=== PATIENT | female | born 1985 | race Caucasian/White ===

== ENCOUNTER 2017-04-06 18:32 | Emergency (ER) | payer SELFPAY ==
[~2017-04-06] VITALS: Ht 175.3 cm; Wt 120.0 kg
[~2017-04-06 18:32] MED LIST: SPRI28TA PO
[2017-04-06 18:45] VITALS: BP 125/77; PULSE 82; RESP 15; TEMP 98.2; O2SAT 100
--- NOTE | 2017-04-06 19:46 | PD ---
HPI Chief Complaint: Abdominal Pain Time Seen by Provider: 18:55 Travel History International Travel<30 days: No Contact w/Intl Traveler<30days: No Traveled to known affect area: No History of Present Illness HPI Patient is a 32-year-old female presenting to the emergency room evaluation of abdominal cramping. She was initially seen and evaluated in [place], [facility] to rule out ectopic . She states she took a test today and it was positive. Her last menstrual cycle was on March 20. She states that she is an intermittent cramping with her menstrual cycles however this is gone on for the last month. She reports occasional dysuria. She also states that her white blood cell count has been elevated in the past and she's been evaluated by hematology. Her past medical history significant for PCOS. [facility] Past Medical History Reproductive: Yes (pcos) ?: LMP: 03/20/17 : 1 Past Surgical History Surgical History: No Previous Surgery Social History Alcohol Use: Yes Tobacco Use: No Substance Use: No Allergies-Medications (Allergen,Severity, Reaction): Coded Allergies: No Known Allergies (Unverified , 04/06/17) Reported Meds & Prescriptions Reported Meds & Active Scripts Active Reported Sprintec 28 (Norgestimate-Ethinyl Estradiol) 0.25-35 mg-Mcg Tab 1 Tab PO DAILY Review of Systems Except as stated in HPI: all other systems reviewed are Neg Genitourinary: Positive: Dysuria (cramping), Pelvic Pain, No: Discharge, Vaginal Bleeding Physical Exam Narrative GENERAL: Well-developed, well-nourished, alert female. Resting comfortably in no acute distress. SKIN: Warm and dry. HEAD: Atraumatic. Normocephalic. EYES: Pupils equal and round. No scleral icterus. No injection or drainage. ENT: No nasal bleeding or discharge. Mucous membranes pink and moist. NECK: Trachea midline. No JVD. CARDIOVASCULAR: Regular rate and rhythm. RESPIRATORY: No accessory muscle use. Clear to auscultation. Breath sounds equal bilaterally. GASTROINTESTINAL: Abdomen soft, non-tender, nondistended. Hepatic and splenic margins not palpable. GENITOURINARY: Normal external genitalia without lesions or erythema. Vaginal vault without blood, white drainage noted. No foul odor noted. Cervical os was closed without drainage. No cervical motion tenderness. Uterus nontender and nonenlarged. Bilateral adnexa nontender without masses. MUSCULOSKELETAL: Extremities without clubbing, cyanosis, or edema. No obvious deformities. NEUROLOGICAL: Awake and alert. No obvious cranial nerve deficits. Motor grossly within normal limits. Five out of 5 muscle strength in the arms and legs. Normal speech. PSYCHIATRIC: Appropriate mood and affect; insight and judgment normal. Data Data Last Documented VS Vital Signs Date Time Temp Pulse Resp B/P (MAP) Pulse Ox O2 Delivery O2 Flow Rate FiO2 04/06/17 21:53 72 20 130/80 (97) 97 Room Air 04/06/17 18:45 98.2 Orders Orders Us Pelvis (Ques Pr/Ect)W Trans (04/06/17 ) Wet Prep Profile (04/06/17 18:54) Gc And Chlamydia Pcr (04/06/17 18:54) Labs Laboratory Tests Test 04/06/17 19:14 Clue Cells (Wet Prep) NONE SEEN Vaginal Trichomonas (Wet Prep) NONE SEEN Vaginal Yeast (Wet Prep) NONE SEEN Chlamydia trachomatis DNA (PCR) NOT DETECTED Neisseria gonorrhoeae DNA (PCR) NOT DETECTED MDM Medical Decision Making Medical Screen Exam Complete: Yes Emergency Medical Condition: Yes Medical Record Reviewed: Yes Interpretation(s) Laboratory Tests Test 04/06/17 19:14 Clue Cells (Wet Prep) NONE SEEN Vaginal Trichomonas (Wet Prep) NONE SEEN Vaginal Yeast (Wet Prep) NONE SEEN Chlamydia trachomatis DNA (PCR) NOT DETECTED Neisseria gonorrhoeae DNA (PCR) NOT DETECTED Vital Signs Date Time Temp Pulse Resp B/P (MAP) Pulse Ox O2 Delivery O2 Flow Rate FiO2 04/06/17 18:45 98.2 82 15 125/77 (93) 100 Differential Diagnosis UTI vs ectopic vs intrauterine vs other Narrative Course Patient is a 32-year-old female that was sent from [place] for pelvic ultrasound to rule out ectopic . Patient's vital signs are stable, she was complaining of intermittent cramping, she has had no vaginal bleeding or discharge. Pelvic exam was performed, cervical os is closed, there was white mucousy drainage however wet prep GC and chlamydia are all negative. Pelvic ultrasound shows an intrauterine gestational sac with yolk sac identified. pole should be discernible with a quantitative beta hCG in excess of 6000, this questions viability. No evidence of free fluid in the cul-de-sac or adnexal. Discussed findings with patient, she was advised that this is very early in the . She was informed that there was no heartbeat or pole observed. She was encouraged to follow up with her [employer]. She was given strict return precautions regarding vaginal bleeding , increased cramping etc. She will be advised to present to the [place], emergency Department in 48 hours for repeat hCG level. She verbalized understanding of discharge instructions. Patient stable for discharge. 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
[2017-04-06 20:35] VITALS: BP 136/70; PULSE 75; RESP 18; O2SAT 98
[2017-04-06 21:53] VITALS: BP 130/80; PULSE 72; RESP 20; O2SAT 97
--- NOTE | 2017-04-06 22:05 | RADRPT ---
EXAM DATE/TIME: 04/06/2017 20:17 [place] COMPARISON: No previous studies available for comparison. INDICATIONS : Cramping with . LAB(S): Beta-hC MEDICAL HISTORY : . SURGICAL HISTORY : None. ENCOUNTER: Initial ACUITY: 1 day PAIN SCORE: 4/10 LOCATION: Bilateral pelvis MEASUREMENTS: UTERUS: 9.5 x 4.0 x 4.1 cm RIGHT OVARY: 3.7 x 3.0 x 2.7 cm LEFT OVARY: 3.9 x 2.0 x 2.3 cm FINDINGS: A gestational sac is identified in the body of the uterus which contains a yolk sac. Gestational sac measures 1.0 cm. No pole is identified. Both ovaries are identified.; No ovarian cysts seen . No evidence of free fluid. CONCLUSION: 1. Gestational sac with yolk sac identified. A pole should be discernible with a quantitative beta hCG in excess of 6000; this questions viability. 2. No evidence of free fluid in the cul-de-sac or adnexa. Jonas Glynn MD on April 06, 2017 at 21:56 Board Certified Radiologist. This report was verified electronically.
[2017-04-06] MEDS ORDERED: PREN29TA PO (22:17)
[2017-04-08] MEDS ORDERED: PRIL20TA2 PO (17:37)
[2017-04-08] MEDS ORDERED: ZOFR4TAB3 SL (18:44)
== END 2017-04-06 22:43 | disposition home or self-care (01) ==
LOC: NEPE 18:32
DX: O26.891 Other specified pregnancy related conditions, first trimester (principal); R10.9 Unspecified abdominal pain; Z3A.00 Weeks of gestation of pregnancy not specified
CPT/HCPCS: 76700; 76817; 80053; 81001; 83690; 84702; 85025; 85610; 85730; 87086; 87210; 87491; 87591; 99284